=== PATIENT | male | born 1960 | race African-American/Black ===

== ENCOUNTER 2017-04-30 15:50 | Emergency (ER) | payer OTHER ==
[~2017-04-30] VITALS: Ht 180.3 cm; Wt 127.0 kg
[2017-04-30 15:50] VITALS: BP 173/88
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
[2017-04-30 16:20] LABS: POTASSIUM ISTAT 3.4 mmol/L (3.5-5.0)
--- NOTE | 2017-04-30 16:22 | EKG ---
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
[2017-04-30] MEDS ORDERED: IBUPROFEN 600 MG TABLET. PO ONE (17:00)
[2017-04-30] MEDS ORDERED: DIPHTH,PERTUSS(ACELL),TET TOX 0.5 ML DISP.SYRIN. VAX IM ONE (17:00)
== END 2017-04-30 17:30 | disposition home or self-care (01) ==
LOC: ER 15:50
DX: S80.01XA Contusion of right knee, initial encounter (principal); S80.811A Abrasion, right lower leg, initial encounter; J45.909 Unspecified asthma, uncomplicated; V69.49XA Driver of heavy transport vehicle injured in collision with other motor vehicles in traffic accident, initial encounter; Y93.89 Activity, other specified; Y92.89 Other specified places as the place of occurrence of the external cause; Y99.8 Other external cause status
CPT/HCPCS: 36415; 73562; 73590; 80047; 90471; 90715; 93005; 99285-25